=== PATIENT | female | born 1965 ===

== ENCOUNTER 2017-04-08 17:58 | Emergency (ER) | payer BC, MEDICARE ==
[2017-04-08] MEDS ORDERED: NS 0.9% 1000 ML* 1,000 ML IV ONE (18:09)
[2017-04-08 18:34] LABS: Hematocrit 35 % (35-47); Hemoglobin 11.8 g/dl (12.0-16.0); Mean Corpuscular HGB Conc 33 g/dl (31-36); Mean Corpuscular Hemoglobin 31 pg (27-31); Mean Corpuscular Volume 92 fL (80-97); Mean Platelet Volume 10 um3 (7.4-10.4); Red Blood Count 3.85 10^6/ul (4.0-5.4); Red Cell Distribution Width 14 % (10.5-15); White Blood Count 6.6 10^3/ul (3.5-10.8)
[2017-04-08 18:49] LABS: Albumin 3.6 g/dL (3.2-5.2); BUN/Creatinine Ratio 18.4 (8-20); C Reactive Protein 1.73 mg/L (< 5.00); Calcium 9.6 mg/dL (8.6-10.3); EGFR African American 72.4 (>60); EGFR Non-African American 56.3 (>60); Globulin 3.7 g/dL (2-4); Magnesium 1.7 mg/dL (1.9-2.7); Potassium 3.7 mmol/L (3.5-5.0); Total Bilirubin 0.6 mg/dL (0.2-1.0); Total Protein 7.3 g/dL (6.4-8.9)
--- NOTE | 2017-04-08 19:46 | RAD ---
CLINICAL HISTORY: Abdominal pain and near-syncope COMPARISON: Similar CT of the abdomen and pelvis dated August 25, 2008 TECHNIQUE: Noncontrast CT examination of the abdomen and pelvis from the lung bases through the initial tuberosities. FINDINGS: VISUALIZED LUNG BASES: The visualized lung bases are grossly clear. There is no pleural effusion. ABDOMEN AND PELVIS: Evaluation of the solid organs and vasculature is limited without intravenous contrast. The liver, spleen, pancreas and adrenal glands are grossly normal in appearance. The gallbladder is normal. At the left lower pole there is a 1.7 cm fluid density cyst. The kidneys are normal in appearance without focal mass, calcification or signs of hydronephrosis. Evaluation of the gastrointestinal tract is limited without oral contrast. The small and large bowel are not distended.The patient's normal appendix is identified in the right lower quadrant measuring just under 6 mm in diameter and with gas in the lumen (axial image 45 and coronal image 42). There is no gross retroperitoneal or mesenteric lymphadenopathy. At the left adnexa there is a 2.3 cm low-density structure potentially representing an ovarian follicle. The abdominal aorta and iliac arteries are normal in course and diameter. Degenerative changes include multilevel loss of intervertebral disc height involving the lower thoracic and lumbar spine and vacuum disc phenomenon and endplate sclerosis at L5/S1.There are no sinister bone lesions. IMPRESSION: 1. The gastrointestinal tract appears normal within the limitations of a noncontrast CT examination. 2. No renal calculi or signs of hydronephrosis identified. 3. Images are most consistent with an ovarian follicle in the left hemipelvis, perhaps with a degree of hemorrhage, which can be further characterized with pelvic ultrasound. 4. Additional chronic and degenerative changes described in the body the report.
[2017-04-08 19:52] LABS: Urine Bilirubin Negative (Negative); Urine Glucose Negative (Negative); Urine Nitrite Negative (Negative)
[2017-04-08] MEDS ORDERED: Ketorolac INJ* 30 MG/ML 1 ML VIAL IV ONE (20:03)
--- NOTE | 2017-04-08 21:07 | RAD ---
INDICATION: Left adnexal plane COMPARISON: Same day CT examination TECHNIQUE: Real-time transabdominal only ultrasound examination of the female pelvis including grayscale and Doppler color flow imaging. FINDINGS: Uterus: The uterus measures 8.1 x 4.9 x 5.4 cm. There are at least 2 hypoechoic structures in the anterior myometrium each measuring up to 1.3 cm in greatest dimension most consistent with fibroids. The myometrium is otherwise heterogeneous in echogenicity. The endometrial stripe measures 8 mm in thickness. Ovaries: The right and left ovary measure 2.9 x 2.0 x 3.1 cm and 2.5 x 2.6 x 3.7 cm, respectively. Normal arterial and venous waveforms are identified. Within the left ovary there is an anechoic and avascular structure measuring 1.7 cm in greatest dimension most consistent with a follicle. There is trace free fluid in the cul-de-sac. IMPRESSION: 1. At least 2 small myometrial fibroids are identified. The myometrium is heterogeneous in appearance which could be seen in the setting of either ill-defined additional fibroids or adenomyosis. 2. Findings are consistent with a 1.7 cm follicle in the left ovary in a woman who is still undergoing menstrual activity.
[2017-04-08] MEDS ORDERED: HYDROcodone/ACETAMIN 5-325 MG* 1 TAB PO ONE (21:12)
--- NOTE | 2017-04-08 21:26 | ED ---
Randall Cordero SooYoung, scribed for Anoop Cain MD on 04/08/17 at 1854 . Abdominal Pain/Female - HPI Summary HPI Summary: A 51 y/o F presenting to the ED via car with c/o lower abd pain onset this past week and worsening yesterday. Pain described as sharp. Associated sx: diaphoresis, dizziness, diarrhea yesterday. Denies: urinary sx, constipation. Aggravating factors: cough. Patient has not taken antibiotics and denies any past abd surgeries. Denies PMHx. - History of Current Complaint Chief Complaint: EDAbdPain Stated Complaint: ABD PAIN/FEELS FAINT Time Seen by Provider: 04/08/17 18:21 Hx Obtained From: Patient, Medical Records Onset/Duration: Gradual Onset, Lasting Days - Pain began earlier last week, but increased in severity yesterday., Still Present Timing: Constant Severity Initially: Moderate Severity Currently: Severe Pain Intensity: 10 Pain Scale Used: 0-10 Numeric Location: Discrete At: RLQ, Discrete At: LLQ, Suprapubic Character: Sharp Aggravating Factor(s): Other: - cough Associated Signs and Symptoms: Positive: Diaphoresis, Dizzy, Diarrhea. Negative : Urinary Symptoms Allergies/Adverse Reactions: Allergies Allergy/AdvReac Type Severity Reaction Status Date / Time Sulfa Antibiotics Allergy Hives Verified 04/08/17 19:50 PMH/Surg Hx/FS Hx/Imm Hx Previously Healthy: No Respiratory History: Reports: Hx Pneumonia History: Reports: Other Problems/Disorders - mild chronic renal insufficiency Sensory History: Denies: Hx Deafness Opthamlomology History: Denies: Hx Legally Blind Infectious Disease History: No Infectious Disease History: Denies: Traveled Outside the [place] in Last 30 Days - Family History Known Family History: Positive: Renal Disease - mild chronic renal insufficiency Negative: Cardiac Disease, Hypertension, Diabetes - Social History Occupation: Disabled Lives: Alone Alcohol Use: Rare Hx Substance Use: No Substance Use Type: Reports: None Hx Tobacco Use: No Smoking Status (MU): Never Smoked Tobacco Review of Systems Positive: Skin Diaphoresis Positive: Abdominal Pain, Diarrhea. Negative: Other - neg: constipation Positive: other - neg: urinary sx Neurological: Other - pos: dizziness All Other Systems Reviewed And Are Negative: Yes Physical Exam - Summary Physical Exam Summary: The patient is well-nourished in no acute distress and in no acute pain. The skin is warm and dry and skin color reflects adequate perfusion. HEENT: The head is normocephalic and atraumatic. The pupils are equal and reactive. The conjunctivae are clear and without drainage. Nares are patent and without drainage. Mouth reveals moist mucous membranes and the throat is without erythema and exudate. The external ears are intact. The ear canals are patent and without drainage. The tympanic membranes are intact. Neck is supple with full range of motion and non-tender. There are no carotid bruits. There is no neck vein distension. Respiratory: Chest is non-tender. Lungs are clear to auscultation and breath sounds are symmetrical and equal. Cardiovascular: Heart is regular rate and rhythm. There is no murmur or rub auscultated. There is no peripheral edema and pulses are symmetrical and equal. Abdomen: The abdomen is tender bilaterally in lower quadrants, L worse than R, and suprapubic abdomen. There are normal bowel sounds. Musculoskeletal: There is no back pain noted. Extremities are non-tender with full range of motion. There is good capillary refill. There is no peripheral edema or calf tenderness elicited. Neurological: Patient is alert and oriented to person, place and time. The patient has symmetrical motor strength in all four extremities. Cranial nerves are grossly intact. Deep tendon reflexes are symmetrical and equal in all four extremities. Psychiatric: The patient has an appropriate affect and does not exhibit any anxiety or depression. Triage Information Reviewed: Yes Vital Signs On Initial Exam: Initial Vitals Temp Pulse Resp BP Pulse Ox 97.2 F 85 16 118/74 99 04/08/17 18:00 04/08/17 18:00 04/08/17 18:00 04/08/17 18:00 04/08/17 18:00 Vital Signs Reviewed: Yes - Bess Coma Scale Coma Scale Total: 15 Diagnostics - Vital Signs Vital Signs Temp Pulse Resp BP Pulse Ox 04/08/17 18:00 97.2 F 85 16 118/74 99 - Laboratory Lab Results: Lab Results 04/08/17 04/08/17 04/08/17 Range/Units 18:27 18:27 18:27 WBC 6.6 (3.5-10.8) 10^3/ul RBC 3.85 L (4.0-5.4) 10^6/ul Hgb 11.8 L (12.0-16.0) g/dl Hct 35 (35-47) % MCV 92 (80-97) fL MCH 31 (27-31) pg MCHC 33 (31-36) g/dl RDW 14 (10.5-15) % Plt Count 160 (150-450) 10^3/ul MPV 10 (7.4-10.4) um3 Neut % (Auto) 51.2 (38-83) % Lymph % (Auto) 38.1 (25-47) % [place] % (Auto) 7.1 (1-9) % Eos % (Auto) 2.6 (0-6) % Baso % (Auto) 1.0 (0-2) % Absolute Neuts (auto) 3.4 (1.5-7.7) 10^3/ul Absolute Lymphs (auto) 2.5 (1.0-4.8) 10^3/ul Absolute Monos (auto) 0.5 (0-0.8) 10^3/ul Absolute Eos (auto) 0.2 (0-0.6) 10^3/ul Absolute Basos (auto) 0.1 (0-0.2) 10^3/ul Absolute Nucleated RBC 0 10^3/ul Nucleated RBC % 0.1 Sodium 135 (133-145) mmol/L Potassium 3.7 (3.5-5.0) mmol/L Chloride 103 (101-111) mmol/L Carbon Dioxide 26 (22-32) mmol/L Anion Gap 6 (2-11) mmol/L BUN 19 (6-24) mg/dL Creatinine 1.03 H (0.51-0.95) mg/dL Est GFR ( Amer) 72.4 (>60) Est GFR (Non-Af Amer) 56.3 (>60) BUN/Creatinine Ratio 18.4 (8-20) Glucose 102 H (70-100) mg/dL Lactic Acid 0.5 (0.5-2.0) mmol/L Calcium 9.6 (8.6-10.3) mg/dL Magnesium 1.7 L (1.9-2.7) mg/dL Total Bilirubin 0.60 (0.2-1.0) mg/dL AST 16 (13-39) U/L ALT 10 (7-52) U/L Alkaline Phosphatase 49 (34-104) U/L C-Reactive Protein 1.73 (< 5.00) mg/L Total Protein 7.3 (6.4-8.9) g/dL Albumin 3.6 (3.2-5.2) g/dL Globulin 3.7 (2-4) g/dL Albumin/Globulin Ratio 1.0 (1-3) Lipase 15 (11.0-82.0) U/L Urine Color Urine Appearance Urine pH (5-9) Ur Specific [place] (1.010-1.030) Urine Protein (Negative) Urine Ketones (Negative) Urine Blood (Negative) Urine Nitrate (Negative) Urine Bilirubin (Negative) Urine Urobilinogen (Negative) Ur Leukocyte Esterase (Negative) Urine Glucose (Negative) 04/08/17 Range/Units 19:40 WBC (3.5-10.8) 10^3/ul RBC (4.0-5.4) 10^6/ul Hgb (12.0-16.0) g/dl Hct (35-47) % MCV (80-97) fL MCH (27-31) pg MCHC (31-36) g/dl RDW (10.5-15) % Plt Count (150-450) 10^3/ul MPV (7.4-10.4) um3 Neut % (Auto) (38-83) % Lymph % (Auto) (25-47) % [place] % (Auto) (1-9) % Eos % (Auto) (0-6) % Baso % (Auto) (0-2) % Absolute Neuts (auto) (1.5-7.7) 10^3/ul Absolute Lymphs (auto) (1.0-4.8) 10^3/ul Absolute Monos (auto) (0-0.8) 10^3/ul Absolute Eos (auto) (0-0.6) 10^3/ul Absolute Basos (auto) (0-0.2) 10^3/ul Absolute Nucleated RBC 10^3/ul Nucleated RBC % Sodium (133-145) mmol/L Potassium (3.5-5.0) mmol/L Chloride (101-111) mmol/L Carbon Dioxide (22-32) mmol/L Anion Gap (2-11) mmol/L BUN (6-24) mg/dL Creatinine (0.51-0.95) mg/dL Est GFR ( Amer) (>60) Est GFR (Non-Af Amer) (>60) BUN/Creatinine Ratio (8-20) Glucose (70-100) mg/dL Lactic Acid (0.5-2.0) mmol/L Calcium (8.6-10.3) mg/dL Magnesium (1.9-2.7) mg/dL Total Bilirubin (0.2-1.0) mg/dL AST (13-39) U/L ALT (7-52) U/L Alkaline Phosphatase (34-104) U/L C-Reactive Protein (< 5.00) mg/L Total Protein (6.4-8.9) g/dL Albumin (3.2-5.2) g/dL Globulin (2-4) g/dL Albumin/Globulin Ratio (1-3) Lipase (11.0-82.0) U/L Urine Color Yellow Urine Appearance Clear Urine pH 6.0 (5-9) Ur Specific [place] 1.015 (1.010-1.030) Urine Protein Negative (Negative) Urine Ketones Negative (Negative) Urine Blood Negative (Negative) Urine Nitrate Negative (Negative) Urine Bilirubin Negative (Negative) Urine Urobilinogen Negative (Negative) Ur Leukocyte Esterase Negative (Negative) Urine Glucose Negative (Negative) Result Diagrams: 04/08/17 18:27 04/08/17 18:27 Lab Statement: Any lab studies that have been ordered have been reviewed, and results considered in the medical decision making process. - CT ABD/PEL CT CT Interpretation: Positive (See Comments) - IMPRESSION: 1. The gastrointestinal tract appears normal within the limitations of a noncontrast CT examination. 2. No renal calculi or signs of hydronephrosis identified. 3. Images are most consistent with an ovarian follicle in the left hemipelvis, perhaps with a degree of hemorrhage, which can be further characterized with pelvic ultrasound. 4. Additional chronic and degenerative changes described in the body the report. ED physician has reviewed this radiology report and agrees. CT Interpretation Completed By: Radiologist - Ultrasound No standard instances Ultrasound Interpretation: Positive (See Comments) - IMPRESSION: 1. At least 2 small myometrial fibroids are identified. The myometrium is heterogeneous in appearance which could be seen in the setting of either ill-defined additional fibroids or adenomyosis. 2. Findings are consistent with a 1.7 cm follicle in the left ovary in a woman who is still undergoing menstrual activity. ED physician has reviewed this radiology report and agrees. Abdominal Pain Fem Course/Dx - Course Course Of Treatment: Ms. Kelley presented with about a day of LLQ pain. Nothing aside from a left ovarian cyst and fibroids was found. She still has periods but no pain with them and she says they are not heavy. - Diagnoses Provider Diagnoses: Abdominal pain Discharge - Discharge Plan Condition: Stable Disposition: HOME Prescriptions: HYDROcodone/ACETAMIN 5-325 MG* [[place] 5-325 TAB*] 1 tab PO Q6H PRN #20 tab MDD 4 PRN Reason: Pain Patient Education Materials: Hydrocodone/Acetaminophen (By mouth), Abdominal Pain (ED) Referrals: Maris Vergara MD [Primary Care Provider] - 1 Week Additional Instructions: Please return to the ED if you experience new or worsening symptoms. Follow up with your primary care provider within the week. The documentation as recorded by the Randall ponce SooYoung accurately reflects the service I personally performed and the decisions made by , Anoop Cain MD.
[2017-04-08 22:38] VITALS: BP 98/58
== END 2017-04-08 22:36 | disposition home or self-care (01) ==
LOC: ED 17:58
DX: R10.30 Lower abdominal pain, unspecified (principal); Z88.2 Allergy status to sulfonamides; D25.9 Leiomyoma of uterus, unspecified; Z76.0 Encounter for issue of repeat prescription
CPT/HCPCS: 36415; 74176; 76856; 80053; 81003; 83605; 83690; 83735; 85025; 86140; 96360; 96374; 99283; J1885